=== PATIENT | female | born 1940 ===

== ENCOUNTER 2016-12-23 13:22 | Inpatient (IN) | payer OTHER, MEDICAID ==
[~2016-12-23] VITALS: Ht 152.4 cm; Wt 59.9 kg
[2016-12-23 15:42] LABS: PLATELET COUNT 148 x10^3mcL (130-400)
[2016-12-23 15:59] LABS: CALCIUM 8.4 mg/dL (8.5-10.1); CHLORIDE SERUM 105 mmol/L (98-107); CREATININE SERUM 0.8 mg/dL (0.6-1.0); GLUCOSE SERUM 121 mg/dL (74-106); POTASSIUM SERUM 3.7 mmol/L (3.5-5.1); SODIUM SERUM 138 mmol/L (136-145)
[2016-12-23 16:04] LABS: ALKALINE PHOSPHATASE 74 U/L (46-116); ALT/SGPT 18 U/L (14-59); AMYLASE 101 U/L (25-115); AST/SGOT 18 U/L (15-37); BILIRUBIN TOTAL 0.8 mg/dL (0.20-1.00); LIPASE 110 IU/L (73-393); TOTAL PROTEIN, SERUM 6.3 g/dL (6.4-8.2)
[2016-12-23 16:07] LABS: ALBUMIN 3.1 g/dL (3.4-5.0)
[2016-12-23 16:24] LABS: BAND NEUTROPHIL 1 % (0-10); BASOPHIL 0 % (0-2); SEGMENTED NEUTROPHILS 90 % (37-75)
[2016-12-23 16:25] LABS: rbc morphology (normal/abnorm) ABNORMAL (NORMAL)
[2016-12-23] MEDS ORDERED: GOOD SENSE OMEP20 MG PO (17:41)
[2016-12-23] MEDS ORDERED: NAMENDA10 M2 PO (17:41)
[2016-12-23 18:29] LABS: MAGNESIUM 1.9 mg/dL (1.8-2.4); PHOSPHOROUS 3.3 mg/dL (2.5-4.9)
[2016-12-23 18:31] LABS: CHOLESTEROL/HDL RATIO 2.6
[2016-12-23 18:36] LABS: T3 TOTAL 1.03 ng/mL
[2016-12-23 18:37] LABS: FREE T4 1.12 ng/dL (0.76-1.46); FREE THYROXINE INDEX 3.2 ug/dL (1.4-4.5)
[2016-12-23 18:40] VITALS: BP 101/35
[2016-12-23 19:30] VITALS: BP 130/46
[2016-12-23 19:30] LABS: microscopic required? YES; urine erythrocyte 1+ (NEGATIVE)
[2016-12-23 20:25] VITALS: BP 96/49
[2016-12-23] MEDS ORDERED: TRAMADOL HCL50 MG PO (20:38)
[2016-12-23 21:57] VITALS: BP 99/42
[2016-12-24] VITALS (7 sets, daily range): BP systolic 105–123; BP diastolic 46–67
[2016-12-24 06:14] LABS: BASOPHIL % 0.2 % (0-2); RED CELL DISTRIBUTION WIDTH 14.3 % (11.5-14.5)
[2016-12-24 06:35] LABS: CALCIUM 7.7 mg/dL (8.5-10.1); CARBON DIOXIDE 24.6 mmol/L (21-32); CHLORIDE SERUM 111 mmol/L (98-107); CREATININE SERUM 0.8 mg/dL (0.6-1.0); GLUCOSE SERUM 106 mg/dL (74-106); SODIUM SERUM 143 mmol/L (136-145)
[2016-12-24 06:42] LABS: PLATELET COUNT 120 x10^3mcL (130-400)
[2016-12-25 06:07] LABS: BASOPHIL % 0.2 % (0-2); RED CELL DISTRIBUTION WIDTH 14.3 % (11.5-14.5)
[2016-12-25 06:22] LABS: CARBON DIOXIDE 25.5 mmol/L (21-32); CHLORIDE SERUM 109 mmol/L (98-107); CREATININE SERUM 0.7 mg/dL (0.6-1.0); GLUCOSE SERUM 102 mg/dL (74-106); MAGNESIUM 1.9 mg/dL (1.8-2.4); PHOSPHOROUS 2.9 mg/dL (2.5-4.9); POTASSIUM SERUM 3.9 mmol/L (3.5-5.1); SODIUM SERUM 142 mmol/L (136-145)
[2016-12-25 06:33] LABS: PLATELET COUNT 109 x10^3mcL (130-400)
[2016-12-25 06:42] VITALS: BP 100/45
[2016-12-25 10:00] VITALS: BP 102/66
[2016-12-25 10:20] VITALS: Ht 152.4 cm; Wt 59.9 kg
[2016-12-25 14:00] VITALS: BP 125/52
[2016-12-25 18:31] VITALS: BP 117/53
[2016-12-25 21:24] VITALS: BP 109/53
[2016-12-26 05:31] VITALS: BP 110/45
[2016-12-26 06:49] LABS: BASOPHIL % 0.3 % (0-2)
[2016-12-26 06:50] LABS: PLATELET COUNT 104 x10^3mcL (130-400); RED CELL DISTRIBUTION WIDTH 14.6 % (11.5-14.5)
[2016-12-26 06:56] LABS: CALCIUM 8.1 mg/dL (8.5-10.1); CHLORIDE SERUM 108 mmol/L (98-107); CREATININE SERUM 0.7 mg/dL (0.6-1.0); GLUCOSE SERUM 89 mg/dL (74-106); MAGNESIUM 1.9 mg/dL (1.8-2.4); POTASSIUM SERUM 3.6 mmol/L (3.5-5.1); SODIUM SERUM 141 mmol/L (136-145)
[2016-12-26 08:40] VITALS: BP 97/55
[2016-12-26] MEDS ORDERED: ACETAMINOPHEN-H1 TA1 PO (09:40)
[2016-12-26] MEDS ORDERED: COL100 PO (09:41)
[2016-12-26 10:04] VITALS: BP 102/47
[2016-12-26 10:41] VITALS: BP 102/47
== END 2016-12-26 13:57 | disposition home or self-care (01) | DRG 417 ==
LOC: ED 13:22 → DU 17:44
PROVIDERS: Emergency Medicine; Surgery; ADMIT Family Medicine
PROC: 0FT44ZZ Resection of Gallbladder, Percutaneous Endoscopic Approach (ICD-10-PCS; principal; 2016-12-24 09:00)
DX: K80.20 Calculus of gallbladder without cholecystitis without obstruction (principal); N17.0 Acute kidney failure with tubular necrosis; R65.11 Systemic inflammatory response syndrome (SIRS) of non-infectious origin with acute organ dysfunction; E44.0 Moderate protein-calorie malnutrition; E86.0 Dehydration; E78.5 Hyperlipidemia, unspecified; K57.30 Diverticulosis of large intestine without perforation or abscess without bleeding; R31.9 Hematuria, unspecified; M62.50 Muscle wasting and atrophy, not elsewhere classified, unspecified site; M19.90 Unspecified osteoarthritis, unspecified site; G30.9 Alzheimer's disease, unspecified; F02.80 Dementia in other diseases classified elsewhere, unspecified severity, without behavioral disturbance, psychotic disturbance, mood disturbance, and anxiety
CPT/HCPCS: 82962; 83880; 84439; 94150; G0480; J0330; J1885; J1956; J2175; J2250; J2405; J2704; J2710; J3010; J3490; J7030; J7120; Q0092